=== PATIENT | male | born 1965 | race Caucasian/White ===

== ENCOUNTER 2017-04-30 07:51 | Day surgery (SDC) | payer BC ==
[2017-04-30] MEDS: NS 1,000 ML IV (08:00)
[2017-04-30] MEDS ORDERED: PROPOFOL 200 MG/20 ML VIAL As Ordered ×2 (09:14→09:54)
== END 2017-04-30 10:21 | disposition home or self-care (01) ==
LOC: M OPP 07:51
DX: Z12.11 Encounter for screening for malignant neoplasm of colon (principal); K57.30 Diverticulosis of large intestine without perforation or abscess without bleeding; F17.220 Nicotine dependence, chewing tobacco, uncomplicated
CPT/HCPCS: 45378

== ENCOUNTER 2018-03-24 11:08 | Emergency (ER) | payer BC ==
[2018-03-24] MEDS: IBUPROFEN 800 MG TAB PO (11:40)
[2018-03-24] MEDS: ACETAMINOPHEN 325 MG TAB PO (11:40)
[2018-03-24] MEDS: IPRATROPIUM 0.5MG/ALBUTEROL 2.5MG INH SOL UD 3ML (DUONEB)(J7620) NEB (11:43)
[2018-03-24 12:25] LABS: INFLUENZA A AMPLIFICATION NEGATIVE (NEGATIVE); INFLUENZA B AMPLIFICATION NEGATIVE (NEGATIVE)
== END 2018-03-24 12:34 | disposition home or self-care (01) ==
LOC: M ED 11:08
DX: J02.8 Acute pharyngitis due to other specified organisms (principal); M79.10 Myalgia, unspecified site; R05 Cough; R53.83 Other fatigue
CPT/HCPCS: 71046

== ENCOUNTER → 2020-07-20 | Outpatient (REF) | payer BC ==
[~2020-07-20] MED LIST: AMOX500C PO
== END ==
LOC: M LAB REF 16:16
PROVIDERS: ATTEND Family Medicine
DX: R68.82 Decreased libido (principal); F52.21 Male erectile disorder

== ENCOUNTER → 2021-05-31 | Outpatient (CLI) | payer BC | LOC: M RAD 14:17 | PROVIDERS: ATTEND Family Medicine | DX: M25.571 Pain in right ankle and joints of right foot (principal); R22.41 Localized swelling, mass and lump, right lower limb ==

== ENCOUNTER → 2021-09-27 | Outpatient (REF) | payer BC | LOC: M LAB REF 17:24 | PROVIDERS: ATTEND Family Medicine | DX: F52.21 Male erectile disorder (principal) ==

== ENCOUNTER → 2022-05-04 | Outpatient (CLI) | payer BC ==
[~2022-05-04] MED LIST changes: +LOSA50TA28 PO
== END ==
LOC: M LABSMTC 09:31
PROVIDERS: ATTEND Anesthesiology
DX: Z01.818 Encounter for other preprocedural examination (principal); Z11.52 Encounter for screening for COVID-19

== ENCOUNTER 2022-05-08 12:07 | Day surgery (SDC) | payer BC ==
[~2022-05-08] VITALS: Ht 182.9 cm; Wt 117.5 kg
[~2022-05-08 12:07] MED LIST changes: +NS 1,000 ML IV ONE
[2022-05-08] MEDS ORDERED: LIDOCAINE 2% 100MG/5ML SDV (FOR ANES.) As Ordered ONE (13:19)
[2022-05-08] MEDS ORDERED: propofoL 200 MG/20 ML VIAL As Ordered ONE (13:19)
[2022-05-08 13:45] VITALS: BP 154/97
== END 2022-05-08 14:04 | disposition home or self-care (01) ==
LOC: M OPP 12:07
PROVIDERS: ATTEND Surgery
DX: K64.2 Third degree hemorrhoids (principal); K57.30 Diverticulosis of large intestine without perforation or abscess without bleeding; I10 Essential (primary) hypertension; M19.90 Unspecified osteoarthritis, unspecified site; Z79.899 Other long term (current) drug therapy